=== PATIENT | female | born 1990 | race Caucasian/White ===

== ENCOUNTER 2022-11-27 13:40 | Emergency (ER) | payer OTHER ==
[~2022-11-27] VITALS: Ht 165.1 cm; Wt 86.2 kg
[2022-11-27 13:43] VITALS: BP 118/73
--- NOTE | 2022-11-27 14:03 | Diagnostic Imaging Report ---
EXAMINATION: Right hand 3 views HISTORY: Hand pain. COMPARISON: None available. FINDINGS: Alignment is normal. No fracture is seen. Joint spaces are normal. IMPRESSION: 1. No fracture. Dictated by: Dictated on workstation # [id number]
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
== END 2022-11-27 14:22 | disposition home or self-care (01) ==
LOC: ER 13:43
DX: S40.012A Contusion of left shoulder, initial encounter (principal); S60.031A Contusion of right middle finger without damage to nail, initial encounter; S60.041A Contusion of right ring finger without damage to nail, initial encounter; S80.02XA Contusion of left knee, initial encounter; S80.01XA Contusion of right knee, initial encounter; S80.11XA Contusion of right lower leg, initial encounter; S50.812A Abrasion of left forearm, initial encounter; S50.811A Abrasion of right forearm, initial encounter; V89.2XXA Person injured in unspecified motor-vehicle accident, traffic, initial encounter; Y92.410 Unspecified street and highway as the place of occurrence of the external cause
CPT/HCPCS: 73130; 99282